=== PATIENT | female | born 1955 | race Caucasian/White ===

== ENCOUNTER 2020-12-07 23:21 | Emergency (ER) | payer MEDICARE, MEDICAID ==
[~2020-12-07] VITALS: Ht 154.9 cm; Wt 56.0 kg
[2020-12-08] MEDS ORDERED: ACETAMINOPHEN WITH CODEINE 300/30MG TABLET PO ONE (02:00)
[2020-12-08] MEDS ORDERED: METHOCARBAMOL 500MG TABLET PO ONE (02:00)
[2020-12-08] MEDS ORDERED: METH-773 MT (04:24)
[2020-12-08] MEDS ORDERED: LIDO1ADH5 TP (04:24)
[2020-12-08 04:45] VITALS: BP 140/81
== END 2020-12-08 04:47 | disposition home or self-care (01) ==
LOC: ER 23:21
DX: S16.1XXA Strain of muscle, fascia and tendon at neck level, initial encounter (principal); I11.9 Hypertensive heart disease without heart failure; E11.9 Type 2 diabetes mellitus without complications; E78.5 Hyperlipidemia, unspecified; I25.10 Atherosclerotic heart disease of native coronary artery without angina pectoris; V43.52XA Car driver injured in collision with other type car in traffic accident, initial encounter; Y93.89 Activity, other specified; Y92.410 Unspecified street and highway as the place of occurrence of the external cause; Z88.3 Allergy status to other anti-infective agents; Z88.8 Allergy status to other drugs, medicaments and biological substances; Z94.0 Kidney transplant status; Z95.1 Presence of aortocoronary bypass graft; Z91.013 Allergy to seafood
CPT/HCPCS: 73060; 99285